=== PATIENT | female | born 1930 | race Caucasian/White ===

== ENCOUNTER 2017-04-03 05:08 | Observation (INO) | payer MEDICARE, OTHER ==
[2017-04-03] VITALS (9 sets, daily range): BP systolic 104–208; BP diastolic 44–77; PULSE 76–109; RESP 16–20; TEMP 96–102.7; O2SAT 92–98
[~2017-04-03] VITALS: Ht 157.5 cm; Wt 52.0 kg
[~2017-04-03 05:08] MED LIST: ARIC10TA PO; CALC600T37 PO; CARV12.52 PO; CHOL50006 PO; COQ-200C PO; LOVA20TA PO; PRIL20CA PO; SPIRCAP INH; ST J81CH PO; VIBRYD PO
--- NOTE | 2017-04-03 05:19 | PD ---
HPI Chief Complaint: Cold / Flu Symptoms Time Seen by Provider: 05:15 Travel History International Travel<30 days: No Contact w/Intl Traveler<30days: No Traveled to known affect area: No History of Present Illness HPI 86-year-old female came to the emergency room with history of fever, vomiting, diarrhea, body aches for past 4-5 days. Patient says that she has not eaten or drank much in past 24-48 hours. Today she was feeling very sick and asked her son to call 911. She was brought in by EMS. Patient's rectal temperature was 100.8 upon arrival. She says that she did not receive the flu shot this year. She is awake and answering questions appropriately. She has some cough she says. There has been sick members in the family including her-2 sons with similar symptoms in the recent past. Patient denies of any pain anywhere. PFSH Past Medical History Narrative Medical List of her past medical, surgical, social and family history is reviewed from the nursing note. Hx Anticoagulant Therapy: Yes (aspirin ) Arthritis: Yes Asthma: No Autoimmune Disease: No Anxiety: Yes Depression: Yes Heart Rhythm Problems: No Cancer: No High Cholesterol: Yes Chest Pain: Yes Congestive Heart Failure: No COPD: No Cerebrovascular Accident: No Diabetes: No Dialysis: No Diminished Hearing: No Endocrine: No Gastrointestinal Disorders: Yes (REFLUX) GERD: No Glaucoma: No Genitourinary: No Hepatitis: No Hiatal Hernia: No Hypertension: No Immune Disorder: No Implanted Vascular Access Dvce: No Kidney Stones: No Musculoskeletal: Yes (ARTHRITIS) Neurologic: Yes (NERUOPATHY FEET) Psychiatric: No Reproductive: No Respiratory: Yes (copd 2l nc at night) Immunizations Current: Yes Myocardial Infarction: Yes Renal Failure: No Seizures: No Sickle Cell Disease: No Sleep Apnea: No Thyroid Disease: No Ulcer: No Menopausal: Yes Tubal Ligation: Yes Past Surgical History Abdominal Surgery: Yes (ENDOVASC AAA REP., APPY) AICD: No Appendectomy: Yes Body Medical Devices: PLATE LEFT WRIST Cardiac Surgery: Yes (LT CAROTID ENDARECTOMY) Ear Surgery: No Endocrine Surgery: No Eye Surgery: No Genitourinary Surgery: No Gynecologic Surgery: Yes (HYSTERECTOMY, TUBAL LIGATION) Hysterectomy: Yes Insulin Pump: No Joint Replacement: No Neurologic Surgery: No Oral Surgery: Yes (TONSILS) Pacemaker: No Thoracic Surgery: No Tonsillectomy: Yes Other Surgery: Yes Social History Alcohol Use: No Tobacco Use: No (8 YRS AGO, previous 1 ppd) Substance Use: No Allergies-Medications (Allergen,Severity, Reaction): Coded Allergies: Opioids - Morphine Analogues (Unverified Allergy, Severe, HALLUCINATIONS, 04/03/17) Opioids-Meperidine and Related (Unverified Allergy, Severe, HALLUCINATIONS , 04/03/17) Opioids-Methadone and Related (Unverified Allergy, Severe, HALLUCINATIONS , 04/03/17) Sulfa (Sulfonamide Antibiotics) (Unverified Allergy, Severe, Hallucinations, 04/03/17) adhesive (Unverified Allergy, Severe, Rash, 04/03/17) latex (Unverified Allergy, Severe, Rash, 04/03/17) DENIES ALLERGY ONLY TO ADHESIVES PAPER TAPE [place] codeine (Unverified Allergy, Unknown, 04/03/17) Comments List of her allergies reviewed from the nursing note. Reported Meds & Prescriptions Reported Meds & Active Scripts Active Reported B12 (Cyanocobalamin) 1,000 Mcg Tab 500 Mcg PO ONCE Fluoxetine (Fluoxetine HCl) 10 Mg Tab 10 Mg PO DAILY Spiriva Handihaler (Tiotropium Inh) 18 Mcg Cap 18 Mcg INH DAILY 1 capsule = 18 mcg Calcium Carbonate 500 Mg Calcium (1250 Mg) Tab 600 Mg PO BID 1,250 mg calcium carbonate (500 mg elemental calcium) Co Q-10 (Coenzyme Q10 (Ubidecarenone)) 100 Mg Cap Vitamin D3 (Cholecalciferol) 5,000 Unit Cap 5,000 Units PO DAILY Aricept (Donepezil) 23 Mg Tab 10 Mg PO HS Do not split, crushed or chewed. Prilosec (Omeprazole Magnesium) 20 Mg Tab Amlodipine (Amlodipine Besylate) 2.5 Mg Tab 2.5 Mg PO DAILY Carvedilol 3.125 Mg Tab 3.125 Mg PO BID Aspirin Low Dose (Aspirin) 81 Mg Chew 81 Mg PO DAILY [Vibryd] 20 Mg PO DAILY Narrative Medication List of her home medications reviewed from the nursing note. Review of Systems Except as stated in HPI: all other systems reviewed are Neg General / Constitutional: Positive: Fever Respiratory: Positive: Cough Gastrointestinal: Positive: Vomiting, Diarrhea Physical Exam Narrative GENERAL: Awake, alert, elderly, moderate distress SKIN: Focused skin assessment warm/dry. HEAD: Atraumatic. Normocephalic. EYES: Pupils equal and round. No scleral icterus. No injection or drainage. ENT: No nasal bleeding or discharge. Dry mucous membrane and coated tongue NECK: Trachea midline. No JVD. CARDIOVASCULAR: Regular rate and rhythm. No murmur appreciated. RESPIRATORY: No accessory muscle use. Clear to auscultation. Breath sounds equal bilaterally. GASTROINTESTINAL: Abdomen soft, non-tender, nondistended. Hepatic and splenic margins not palpable. MUSCULOSKELETAL: No obvious deformities. No clubbing. No cyanosis. No edema. NEUROLOGICAL: Awake and alert. No obvious cranial nerve deficits. Motor grossly within normal limits. Normal speech. PSYCHIATRIC: Appropriate mood and affect; insight and judgment normal. Data Data Last Documented VS Vital Signs Date Time Temp Pulse Resp B/P (MAP) Pulse Ox O2 Delivery O2 Flow Rate FiO2 04/03/17 05:42 98 Nasal Cannula 2.00 04/03/17 05:37 102.7 04/03/17 05:20 112 22 04/03/17 05:14 208/77 (120) Orders Orders Sepsis Workup Initiated (04/03/17 ) Complete Blood Count With Diff (04/03/17 05:38) Comprehensive Metabolic Panel (04/03/17 05:38) Lactic Acid Sepsis Protocol (04/03/17 05:38) Urinalysis - C+S If Indicated (04/03/17 05:38) Influenzae A/B Antigen (04/03/17 05:38) Blood Culture (04/03/17 05:38) Chest, Single Ap (04/03/17 05:38) Blood Glucose (04/03/17 05:38) Ecg Monitoring (04/03/17 05:38) Iv Access Insert/Monitor (04/03/17 05:38) Oximetry (04/03/17 05:38) Oxygen Administration (04/03/17 05:38) Sodium Chlor 0.9% 1000 Ml Inj (Ns 1000 M (04/03/17 05:45) Acetaminophen (Tylenol) (04/03/17 05:45) Sodium Chlorid 0.9% 500 Ml Inj (Ns 500 M (04/03/17 07:30) Place In Observation (04/03/17 ) Vital Signs (Adult) Q4H (04/03/17 07:26) Activity Oob With Assistance (04/03/17 07:26) Intake + Output JONAH.QSHIFT (04/03/17 07:26) Diet Heart Healthy (04/03/17 Breakfast) Sodium Chlor 0.9% 1000 Ml Inj (Ns 1000 M (04/03/17 09:00) Sodium Chloride 0.9% Flush (Ns Flush) (04/03/17 07:30) Sodium Chloride 0.9% Flush (Ns Flush) (04/03/17 09:00) Acetaminophen (Tylenol) (04/03/17 07:30) Ondansetron Inj (Zofran Inj) (04/03/17 07:30) Scd Bilateral/Knee High JONAH.BID (04/03/17 07:26) Naloxone Inj (Narcan Inj) (04/03/17 07:30) Admit Order (Ed Use Only) (04/03/17 07:27) Amlodipine (Norvasc) (04/03/17 09:00) Aspirin Chew (Aspirin Chew) (04/03/17 09:00) Calcium Carbonate (Oscal) (04/03/17 09:00) Carvedilol (Coreg) (04/03/17 09:00) Cholecalciferol (Vitamin D3) (04/03/17 09:00) Fluoxetine (Prozac) (04/03/17 09:00) Tiotropium Inh (Spiriva Inh) (04/03/17 09:00) Labs Laboratory Tests Test 04/03/17 06:00 White Blood Count 5.8 TH/MM3 Red Blood Count 4.91 MIL/MM3 Hemoglobin 12.3 GM/DL Hematocrit 37.8 % Mean Corpuscular Volume 77.0 FL Mean Corpuscular Hemoglobin 25.0 PG Mean Corpuscular Hemoglobin Concent 32.5 % Red Cell Distribution Width 16.0 % Platelet Count 189 TH/MM3 Mean Platelet Volume 8.0 FL Neutrophils (%) (Auto) 80.1 % Lymphocytes (%) (Auto) 9.3 % Monocytes (%) (Auto) 9.8 % Eosinophils (%) (Auto) 0.4 % Basophils (%) (Auto) 0.4 % Neutrophils # (Auto) 4.7 TH/MM3 Lymphocytes # (Auto) 0.5 TH/MM3 Monocytes # (Auto) 0.6 TH/MM3 Eosinophils # (Auto) 0.0 TH/MM3 Basophils # (Auto) 0.0 TH/MM3 CBC Comment DIFF FINAL Differential Comment Urine Color YELLOW Urine Turbidity CLEAR Urine pH 6.5 Urine Specific [place] 1.013 Urine Protein 100 mg/dL Urine Glucose (UA) NEG mg/dL Urine Ketones NEG mg/dL Urine Occult Blood NEG Urine Nitrite NEG Urine Bilirubin NEG Urine Urobilinogen LESS THAN 2.0 MG/DL Urine Leukocyte Esterase NEG Urine RBC 2 /hpf Urine WBC 2 /hpf Urine Hyaline Casts 1 /lpf Urine Mucus FEW /lpf Microscopic Urinalysis Comment CATH-CULT NOT IND Blood Urea Nitrogen 17 MG/DL Creatinine 1.22 MG/DL Random Glucose 120 MG/DL Total Protein 7.5 GM/DL Albumin 3.5 GM/DL Calcium Level 8.6 MG/DL Alkaline Phosphatase 82 U/L Aspartate Amino Transf (AST/SGOT) 20 U/L Alanine Aminotransferase (ALT/SGPT) 16 U/L Total Bilirubin 0.3 MG/DL Sodium Level 135 MEQ/L Potassium Level 3.9 MEQ/L Chloride Level 100 MEQ/L Carbon Dioxide Level 26.5 MEQ/L Anion Gap 9 MEQ/L Estimat Glomerular Filtration Rate 42 ML/MIN Lactic Acid Level 1.2 mmol/L MDM Medical Decision Making Medical Screen Exam Complete: Yes Emergency Medical Condition: Yes Medical Record Reviewed: Yes Differential Diagnosis Sepsis, UTI, pneumonia, influenza, viral illness Narrative Course 7:18 AM blood test results of back and within acceptable limits. Influenza is negative. Patient does not have a UTI. She was given 1 L of IV fluid bolus. Given her age and her illness I would like to admit her. Waiting for the hospitalist to call back. Patient was given Tylenol for the fever. Procedures EKG Prior to Arrival: No Diagnosis Primary Impression: Fever Qualified Codes: R50.9 - Fever, unspecified Additional Impressions: Dehydration Generalized weakness Admitting Information Admitting Physician Requests: it Baldemar Adame MD Apr 03, 2017 05:19
[2017-04-03] MEDS ORDERED: CARV3.12 PO (05:23)
[2017-04-03] MEDS ORDERED: ASPI81CH6 PO (05:23)
[2017-04-03] MEDS ORDERED: AMLO2.5T PO (05:25)
[2017-04-03] MEDS ORDERED: PRIL20TA2 (05:25)
[2017-04-03] MEDS ORDERED: ARIC23TA PO (05:25)
[2017-04-03] MEDS ORDERED: COEN1CAP (05:27)
[2017-04-03] MEDS ORDERED: CHOL5000 PO (05:27)
[2017-04-03] MEDS ORDERED: CALC12502 PO (05:27)
[2017-04-03] MEDS ORDERED: SPIRCAP INH (05:27)
[2017-04-03] MEDS ORDERED: CYAN1TAB24 PO (05:32)
[2017-04-03] MEDS ORDERED: FLUO10TA PO (05:32)
[2017-04-03] MEDS ORDERED: ACETAMINOPHEN 325 MG TAB PO ONE (05:45)
[2017-04-03] MEDS ORDERED: SODIUM CHLOR 0.9% 1000 ML INJ 1,000 ML IV ONE (05:45)
--- NOTE | 2017-04-03 06:13 | RADRPT ---
EXAM DATE/TIME: 04/03/2017 05:50 [facility] COMPARISON: CHEST SINGLE AP, December 22, 2015, 12:49. INDICATIONS : Short of breath. MEDICAL HISTORY : Chronic obstructive pulmonary disease. Myocardial infarction. SURGICAL HISTORY : None. ENCOUNTER: Initial ACUITY: 1 day PAIN SCORE: 0/10 LOCATION: Bilateral chest FINDINGS: A single view of the chest demonstrates the lungs to be symmetrically aerated without evidence of mas s, infiltrate or effusion. The cardiomediastinal contours are unremarkable. Osseous structures are intact. CONCLUSION: The lungs are clear. Vargas Donaldson MD on April 03, 2017 at 6:11 Board Certified Radiologist. This report was verified electronically.
[2017-04-03 06:19] LABS: BILIRUBIN, URINE NEG (NEG); BLOOD, URINE NEG (NEG); GLUCOSE,URINE NEG (NEG); HYALINE CAST, URINE 1 /lpf (RARE); KETONE, URINE NEG (NEG); MUCUS URINE FEW /lpf (OCC); NITRITE,URINE NEG (NEG); PH, URINE 6.5 (5.0-8.5); URINE COLOR YELLOW (YELLW/STRAW); URINE LEUKOCYTE ESTERASE NEG (NEG)
[2017-04-03 06:28] LABS: AUTOMATED NEUTROPHIL # 4.7 TH/MM3 (1.8-7.7); BASOPHIL % 0.4 % (0.0-2.0); EOSINOPHIL % 0.4 % (0.0-4.0); HEMATOCRIT 37.8 % (35.0-46.0); HEMOGLOBIN 12.3 GM/DL (11.6-15.3); LYMPH % 9.3 % (9.0-44.0); LYMPHOCYTE # 0.5 TH/MM3 (1.0-4.8); MEAN CORPUSCULAR HGB CONC 32.5 % (32.0-36.0); MONO % 9.8 % (0.0-8.0); MONOCYTE # 0.6 TH/MM3 (0-0.9); NEUT % 80.1 % (16.0-70.0); PLATELET COUNT 189 TH/MM3 (150-450); RED BLOOD COUNT 4.91 MIL/MM3 (4.00-5.30); WHITE BLOOD COUNT 5.8 TH/MM3 (4.0-11.0)
[2017-04-03 06:30] LABS: ALBUMIN 3.5 GM/DL (3.4-5.0); ALT (GPT) 16 U/L (10-53); AST (GOT) 20 U/L (15-37); BICARBONATE 26.5 MEQ/L (21.0-32.0); BLOOD UREA NITROGEN 17 MG/DL (7-18); CALCIUM 8.6 MG/DL (8.5-10.1); CHLORIDE 100 MEQ/L (98-107); CREATININE 1.22 MG/DL (0.50-1.00); GLOMERULAR FILTRATION RATE 42 ML/MIN (>89); GLUCOSE,RANDOM 120 MG/DL (74-106); SODIUM (NA) 135 MEQ/L (136-145)
[2017-04-03 06:33] LABS: ALKALINE PHOSPHATASE 82 U/L (45-117); TOTAL BILIRUBIN ADULT 0.3 MG/DL (0.2-1.0); TOTAL PROTEIN 7.5 GM/DL (6.4-8.2)
[2017-04-03] MEDS ORDERED: SODIUM CHLORID 0.9% 500 ML INJ 500 ML IV ONE (07:30)
[2017-04-03] MEDS ORDERED: SODIUM CHLORIDE 0.9% FLUSH 10 ML FLUSH IV FLUSH PRN (07:30)
[2017-04-03] MEDS ORDERED: ACETAMINOPHEN 325 MG TAB PO PRN (07:30)
[2017-04-03] MEDS ORDERED: NALOXONE HCL 0.4 MG/ML AMP IV PUSH PRN (07:30)
[2017-04-03] MEDS ORDERED: ONDANSETRON HCL 4 MG/2 ML VIAL IVP PRN (07:30)
[2017-04-03] MEDS ORDERED: PILL SPLITTER OTHER PRN (09:00)
[2017-04-03] MEDS ORDERED: VILAZODONE 20 MG PO SCH (09:00)
[2017-04-03] MEDS: CARVEDILOL 3.125 MG TAB PO SCH ×2 (09:00→20:34)
[2017-04-03] MEDS: amLODIPine BESYLATE 5 MG TAB PO SCH (09:00)
[2017-04-03] MEDS: CALCIUM CARBONATE 1.25 GM (CA 500 MG) TAB PO SCH ×2 (10:26→20:34)
[2017-04-03] MEDS: CHOLECALCIFEROL (VIT D3) 5000 UNIT CAP PO SCH (10:26)
[2017-04-03] MEDS: PANTOPRAZOLE SODIUM 40 MG VIAL IV PUSH SCH (10:27)
[2017-04-03] MEDS: ASPIRIN 81 MG CHEW TAB PO SCH (10:27)
[2017-04-03] MEDS: SODIUM CHLORIDE 0.9% FLUSH 10 ML FLUSH IV FLUSH SCH ×2 (10:27→20:34)
[2017-04-03] MEDS: TIOTROPIUM BROMIDE 18 MCG INH INH SCH (11:16)
[2017-04-03] MEDS: FLUoxetine HCL 10 MG CAP PO SCH (11:17)
[2017-04-03] MEDS: SODIUM CHLOR 0.9% 1000 ML INJ 1,000 ML IV SCH (11:18)
--- NOTE | 2017-04-03 12:21 | HHI.HP ---
[facility] Admission Diagnosis fever, dehydration Diagnoses: Chief Complaint: fever, nausea/vomiting, diarrhea Travel History International Travel<30 Days: No Contact w/Intl Traveler <30 Da: No Traveled to Known Affected Are: No Sepsis Criteria SIRS Criteria (2 or more): Temp > 100.9 or < 96.8, Heart rate over 90 Sepsis Criteria (SIRS+source): Infect source susp/known Criteria Outcome: Meets sepsis criteria History of Present Illness Written by Stefania Christian, acting as scribe for Dr. Madden on 04/03/17 at 12: 19. 86-year-old female with history of arthritis, anxiety, depression, hypertension , hyperlipidemia, GERD, neuropathy, PAD, COPD on 2L NC at night, presents with a 5 day history of myalgias, nausea/vomiting, diarrhea, fevers, and nonproductive cough. Earlier this morning she also became acutely dizzy and extremely weak therefore she asked her son to call 911 and she was transported via [facility]. She reports decreased recent oral intake over the past 3-4 days. She reports very loose nonbloody stools. She denies any abdominal pain except feeling sore when she coughs. Her 2 sons recently had the flu. She did not receive her flu shot this year. She denies any recent travel or recent antibiotic use. Upon arrival to the ER, rectal temperature was 100.8. Influenza negative. She was given IVF and tylenol. Since her arrival to the hospital, she feels slightly better. Her nausea and vomiting has improved however she continues to have diarrhea and generalized weakness. She has no other medical complaints to report at this time including no chest pain, palpitations, shortness of breath, or urinary complaints. Review of Systems Except as stated in HPI: all other systems reviewed are Neg Past Family Social History Past Medical History arthritis anxiety depression hypertension hyperlipidemia GERD neuropathy PAD COPD on 2L NC at night Past Surgical History AAA repair Left carotid endarterectomy Appendectomy Tubal ligation Hysterectomy Tonsillectomy Left wrist fracture ORIF with plate Reported Medications B12 (Cyanocobalamin) 1,000 Mcg Tab 500 Mcg PO ONCE Fluoxetine (Fluoxetine HCl) 10 Mg Tab 10 Mg PO DAILY Spiriva Handihaler (Tiotropium Inh) 18 Mcg Cap 18 Mcg INH DAILY 1 capsule = 18 mcg Calcium Carbonate 500 Mg Calcium (1250 Mg) Tab 600 Mg PO BID 1,250 mg calcium carbonate (500 mg elemental calcium) Co Q-10 (Coenzyme Q10 (Ubidecarenone)) 100 Mg Cap Vitamin D3 (Cholecalciferol) 5,000 Unit Cap 5,000 Units PO DAILY Aricept (Donepezil) 23 Mg Tab 10 Mg PO HS Do not split, crushed or chewed. Prilosec (Omeprazole Magnesium) 20 Mg Tab Amlodipine (Amlodipine Besylate) 2.5 Mg Tab 2.5 Mg PO DAILY Carvedilol 3.125 Mg Tab 3.125 Mg PO BID Aspirin Low Dose (Aspirin) 81 Mg Chew 81 Mg PO DAILY [Vibryd] 20 Mg PO DAILY Allergies: Coded Allergies: Opioids - Morphine Analogues (Unverified Allergy, Severe, HALLUCINATIONS, 04/03/17) Opioids-Meperidine and Related (Unverified Allergy, Severe, HALLUCINATIONS , 04/03/17) Opioids-Methadone and Related (Unverified Allergy, Severe, HALLUCINATIONS , 04/03/17) Sulfa (Sulfonamide Antibiotics) (Unverified Allergy, Severe, Hallucinations, 04/03/17) adhesive (Unverified Allergy, Severe, Rash, 04/03/17) latex (Unverified Allergy, Severe, Rash, 04/03/17) DENIES ALLERGY ONLY TO ADHESIVES PAPER TAPE [place] codeine (Unverified Allergy, Unknown, 04/03/17) Active Ordered Medications Current Medications Medications (Trade) Dose Ordered Sig/Allegra Route Start Time Stop Time Status Last Admin Sodium Chloride 1,000 ml @ 60 mls/hr [id number] IV 04/03/17 09:00 04/03/17 11:18 (NS Flush) 2 ml UNSCH PRN IV FLUSH 04/03/17 07:30 (NS Flush) 2 ml BID IV FLUSH 04/03/17 09:00 04/03/17 10:27 (Tylenol) 650 mg Q4H PRN PO 04/03/17 07:30 (Zofran Inj) 4 mg Q6H PRN IVP 04/03/17 07:30 (Narcan Inj) 0.4 mg UNSCH PRN IV PUSH 04/03/17 07:30 (Norvasc) 2.5 mg DAILY PO 04/03/17 09:00 (Aspirin Chew) 81 mg DAILY PO 04/03/17 09:00 04/03/17 10:27 (Oscal) 500 mg BID PO 04/03/17 09:00 04/03/17 10:26 (Coreg) 3.125 mg BID PO 04/03/17 09:00 (Vitamin D3) 5,000 units DAILY PO 04/03/17 09:00 04/03/17 10:26 (Aricept) 10 mg HS PO 04/03/17 21:00 (PROzac) 10 mg DAILY PO 04/03/17 09:00 04/03/17 11:17 (Spiriva Inh) 18 mcg DAILY INH 04/03/17 09:00 04/03/17 11:16 (Protonix Inj) 40 mg Q24H IV PUSH 04/03/17 09:00 04/03/17 10:27 (Pill Splitter) 1 ea UNSCH PRN OTHER 04/03/17 09:00 (Pneumovax-23 Inj) 25 mcg ONCE ONCE IM 04/04/17 10:00 04/04/17 10:01 Family History Family history positive for heart disease Social History Prior tobacco use, 1PPD, quit 8years ago Denies any alcohol use Denies any illicit drug use Physical Exam Vital Signs Vital Signs Date Time Temp Pulse Resp B/P (MAP) Pulse Ox O2 Delivery O2 Flow Rate FiO2 04/03/17 09:58 96.0 85 18 104/51 (68) 98 04/03/17 09:01 86 16 140/64 (89) 98 2.00 04/03/17 08:26 107 18 140/64 (89) 97 Nasal Cannula 2.00 04/03/17 07:49 100 16 140/64 (89) 98 Nasal Cannula 2.00 04/03/17 05:42 98 Nasal Cannula 2.00 04/03/17 05:42 98 Nasal Cannula 2.00 04/03/17 05:37 102.7 04/03/17 05:20 112 22 92 Nasal Cannula 2.00 04/03/17 05:14 99.7 109 20 208/77 (120) 95 Physical Exam GENERAL: Well-nourished, well-developed pleasant elderly female patient in NAD. SKIN: Warm and dry. No rash. HEAD: Normocephalic. Atraumatic. EYES: Pupils equal and round. No scleral icterus. No injection or drainage. ENT: No nasal bleeding or discharge. Mucous membranes dry. NECK: Supple. Trachea midline. CARDIOVASCULAR: Regular rate and rhythm. S1, S2 noted. No murmur appreciated. RESPIRATORY: No accessory muscle use. Clear to auscultation. Breath sounds equal bilaterally. GASTROINTESTINAL: Abdomen soft, non-tender, nondistended. Normoactive bowel sounds x4. MUSCULOSKELETAL: No obvious deformities. Extremities without clubbing, cyanosis , or edema. NEUROLOGICAL: Awake and alert. No obvious cranial nerve deficits. Generalized weakness but moving all extremities equally and spontaneously. Normal speech. PSYCHIATRIC: Appropriate mood and affect; insight and judgment normal. Laboratory Laboratory Tests Test 04/03/17 06:00 White Blood Count 5.8 Red Blood Count 4.91 Hemoglobin 12.3 Hematocrit 37.8 Mean Corpuscular Volume 77.0 Mean Corpuscular Hemoglobin 25.0 Mean Corpuscular Hemoglobin Concent 32.5 Red Cell Distribution Width 16.0 Platelet Count 189 Mean Platelet Volume 8.0 Neutrophils (%) (Auto) 80.1 Lymphocytes (%) (Auto) 9.3 Monocytes (%) (Auto) 9.8 Eosinophils (%) (Auto) 0.4 Basophils (%) (Auto) 0.4 Neutrophils # (Auto) 4.7 Lymphocytes # (Auto) 0.5 Monocytes # (Auto) 0.6 Eosinophils # (Auto) 0.0 Basophils # (Auto) 0.0 CBC Comment DIFF FINAL Differential Comment Urine Color YELLOW Urine Turbidity CLEAR Urine pH 6.5 Urine Specific [place] 1.013 Urine Protein 100 Urine Glucose (UA) NEG Urine Ketones NEG Urine Occult Blood NEG Urine Nitrite NEG Urine Bilirubin NEG Urine Urobilinogen LESS THAN 2.0 Urine Leukocyte Esterase NEG Urine RBC 2 Urine WBC 2 Urine Hyaline Casts 1 Urine Mucus FEW Microscopic Urinalysis Comment CATH-CULT NOT IND Blood Urea Nitrogen 17 Creatinine 1.22 Random Glucose 120 Total Protein 7.5 Albumin 3.5 Calcium Level 8.6 Alkaline Phosphatase 82 Aspartate Amino Transf (AST/SGOT) 20 Alanine Aminotransferase (ALT/SGPT) 16 Total Bilirubin 0.3 Sodium Level 135 Potassium Level 3.9 Chloride Level 100 Carbon Dioxide Level 26.5 Anion Gap 9 Estimat Glomerular Filtration Rate 42 Lactic Acid Level 1.2 Date/Time Source Procedure Growth Status 04/03/17 06:05 Blood Peripheral Aerobic Blood Culture Pending Received 04/03/17 06:05 Blood Peripheral Anaerobic Blood Culture Pending Received 04/03/17 06:00 Nasal Aspirate Influenza Types A,B Antigen (PRITESH) - Final NEGATIVE FOR FLU A AND B ANTIGEN.... Complete Result Diagram: 04/03/17 0600 04/03/17 0600 Imaging Last Impressions Chest X-Ray 04/03/17 0538 Signed Impressions: Service Date/Time: Monday, April 03, 2017 05:50 - CONCLUSION: The lungs are clear. Vargas Donaldson MD Caprenato VTE Risk Assessment Caprini VTE Risk Assessment: Mod/High Risk (score >= 2) Caprini Risk Assessment Model Point Value = 1 Point Value = 2 Point Value = 3 Point Value = 5 Age 41-60 Minor surgery BMI > 25 kg/m2 Swollen legs Varicose veins or History of unexplained or recurrent spontaneous Oral contraceptives or hormone replacement Sepsis (< 1 month) Serious lung disease, including pneumonia (< 1 month) Abnormal pulmonary function Acute myocardial infarction Congestive heart failure (< 1 month) History of inflammatory bowel disease Medical patient at bed rest Age 61-74 Arthroscopic surgery Major open surgery (> 45 min) Laparoscopic surgery (> 45 min) Malignancy Confined to bed (> 72 hours) Immobilizing plaster cast Central venous access Age >= 75 History of VTE Family history of VTE Factor V Leiden Prothrombin [id number] Lupus anticoagulant Anticardiolipin antibodies Elevated serum homocysteine Heparin-induced thrombocytopenia Other congenital or acquired thrombophilia Stroke (< 1 month) Elective arthroplasty Hip, pelvis, or leg fracture Acute spinal cord injury (< 1 month) Prophylaxis Regimen Total Risk Factor Score Risk Level Prophylaxis Regimen 0-1 Low Early ambulation 2 Moderate Order ONE of the following: *Sequential Compression Device (SCD) *Heparin 5000 units SQ BID 3-4 Higher Order ONE of the following medications: *Heparin 5000 units SQ TID *Enoxaparin/Lovenox 40 mg SQ daily (WT < 150 kg, CrCl > 30 mL/min) *Enoxaparin/Lovenox 30 mg SQ daily (WT < 150 kg, CrCl > 10-29 mL/min) *Enoxaparin/Lovenox 30 mg SQ BID (WT < 150 kg, CrCl > 30 mL/min) AND/OR *Sequential Compression Device (SCD) 5 or more Highest Order ONE of the following medications: *Heparin 5000 units SQ TID (Preferred with Epidurals) *Enoxaparin/Lovenox 40 mg SQ daily (WT < 150 kg, CrCl > 30 mL/min) *Enoxaparin/Lovenox 30 mg SQ daily (WT < 150 kg, CrCl > 10-29 mL/min) *Enoxaparin/Lovenox 30 mg SQ BID (WT < 150 kg, CrCl > 30 mL/min) AND *Sequential Compression Device (SCD) Assessment and Plan Problem List: (1) Sepsis ICD Code: A41.9 - Sepsis, unspecified organism (2) Gastroenteritis ICD Code: K52.9 - Noninfective gastroenteritis and colitis, unspecified (3) Fever ICD Code: R50.9 - Fever, unspecified Status: Acute (4) Dehydration ICD Code: E86.0 - Dehydration Status: Acute (5) Generalized weakness ICD Code: R53.1 - Weakness Status: Acute Assessment and Plan 86-year-old female with history of arthritis, anxiety, depression, hypertension , hyperlipidemia, GERD, neuropathy, PAD, COPD on 2L NC at night, presents with a 5 day history of myalgias, nausea/vomiting, diarrhea, fevers, and nonproductive cough. Earlier this morning she also became acutely dizzy and extremely weak therefore she asked her son to call 911 and she was transported via [facility]. Sepsis with Gastroenteritis: suspect symptoms of N/V/D related to viral illness. Tmax 102.7, HR 112. No leukocytosis. UA negative. Influenza negative. CXR images reviewed, no acute findings. -Blood cultures collected and pending -Check for Cdiff and stool studies -Supportive treatment with IVF, antiemetics prn -Monitor for improvement Dehydration: patient with dry mucous membranes on exam, suspect secondary to GI losses from diarrhea/vomiting. Cr 1.22, GFR 42. -give IVF hydration -encourage oral intake -monitor renal function Generalized Weakness: suspect secondary to viral illness as above. -Consult PT -supportive treatment COPD: chronic, on 2L NC at bedtime. Does not appear to be in exacerbation -continue O2 as needed -continue Spiriva, duonebs prn Hypertension/Hyperlipidemia: chronic, stable -continue patient's home meds including coreg and amlodipine -monitor BP, adjust antihypertensives as needed All other medical conditions listed above stable. Continue home medications as appropriate. DVT Prophylaxis: teds/SCDs This note was transcribed by sarah Christian. I, Dr. Maurilio Madden personally performed the history, physical exam, and medical decision making; and confirmed the accuracy of the information in the transcribed note. Authenticated by Dr. Maurilio Madden on 04/03/17 at 12:31. Discussed Condition With Patient, RN Problem Qualifiers (1) Fever: Qualified Codes: R50.9 - Fever, unspecified Stefania Christian PA-C Apr 03, 2017 12:21 Maurilio Madden MD Apr 03, 2017 13:12
[2017-04-03] MEDS ORDERED: RESP: ALBUTEROL 2.5 MG/IPRATROPIUM 0.5 MG NEB (PRN) NEB (16:00)
[2017-04-03] MEDS: HEPARIN SODIUM - SQ 10,000 UNITS/ML VIAL SQ SCH (20:35)
[2017-04-03] MEDS ORDERED: DONEPEZIL HCL 5 MG TAB PO SCH (21:00)
[2017-04-04] MEDS: SODIUM CHLOR 0.9% 1000 ML INJ 1,000 ML IV SCH (03:50)
[2017-04-04 05:06] VITALS: BP_SYST 173; BP_SYST 181; BP_DIAS 70; BP_DIAS 78; PULSE 74; RESP 18; TEMP 98.3; O2SAT 92
[2017-04-04 06:59] LABS: AUTOMATED NEUTROPHIL # 1.5 TH/MM3 (1.8-7.7); BASOPHIL % 0.7 % (0.0-2.0); EOSINOPHIL # 0.1 TH/MM3 (0-0.4); EOSINOPHIL % 2.9 % (0.0-4.0); HEMATOCRIT 33.4 % (35.0-46.0); HEMOGLOBIN 10.8 GM/DL (11.6-15.3); LYMPH % 31.4 % (9.0-44.0); LYMPHOCYTE # 0.9 TH/MM3 (1.0-4.8); MEAN CELL VOLUME 77.7 FL (80.0-100.0); MEAN CORPUSCULAR HGB CONC 32.2 % (32.0-36.0); MEAN PLATELET VOLUME 8.3 FL (7.0-11.0); MONO % 11.8 % (0.0-8.0); MONOCYTE # 0.3 TH/MM3 (0-0.9); NEUT % 53.2 % (16.0-70.0); PLATELET COUNT 163 TH/MM3 (150-450); RED CELL DISTRIBUTION WIDTH 15.7 % (11.6-17.2); WHITE BLOOD COUNT 2.9 TH/MM3 (4.0-11.0)
[2017-04-04 07:22] LABS: BICARBONATE 25.6 MEQ/L (21.0-32.0); CALCIUM 8.3 MG/DL (8.5-10.1); CREATININE 0.92 MG/DL (0.50-1.00)
[2017-04-04 08:00] VITALS: BP 186/82; PULSE 83; RESP 18; TEMP 99.3; O2SAT 94
--- NOTE | 2017-04-04 08:17 | HHI.FF ---
Face to Face Verification Diagnosis: (1) Gastroenteritis (2) Sepsis Physical Therapy Order: Evaluate and Treat, Improve ambulation, Strength and gait training Home Health Nursing Order: Medical education Signs/symptoms of disease process Medication education-adverse effect Nursing assessment with vital signs I have seen patient Lalita Oneil on 04/04/17. My clinical findings support the need for the requested home health care services because: Deconditioned w/ increased weakness I certify that my clinical findings support that this patient is homebound because: Unsteady gait/balance Unsafe to leave home unassisted Maurilio Madden MD Apr 04, 2017 08:17
[2017-04-04] MEDS: HEPARIN SODIUM - SQ 10,000 UNITS/ML VIAL SQ SCH (08:50)
[2017-04-04] MEDS: SODIUM CHLORIDE 0.9% FLUSH 10 ML FLUSH IV FLUSH SCH (08:50)
[2017-04-04] MEDS: PANTOPRAZOLE SODIUM 40 MG VIAL IV PUSH SCH (08:50)
[2017-04-04] MEDS: CALCIUM CARBONATE 1.25 GM (CA 500 MG) TAB PO SCH (08:51)
[2017-04-04] MEDS: TIOTROPIUM BROMIDE 18 MCG INH INH SCH (08:51)
[2017-04-04] MEDS: CHOLECALCIFEROL (VIT D3) 5000 UNIT CAP PO SCH (08:52)
[2017-04-04] MEDS: CARVEDILOL 3.125 MG TAB PO SCH (08:52)
[2017-04-04] MEDS: ASPIRIN 81 MG CHEW TAB PO SCH (08:52)
[2017-04-04] MEDS: amLODIPine BESYLATE 5 MG TAB PO SCH (08:52)
[2017-04-04] MEDS: FLUoxetine HCL 10 MG CAP PO SCH (08:53)
[2017-04-04] MEDS ORDERED: PNEUMOCOCCAL POLYVALENT INJ 25 MCG/0.5 ML SYR IM ONE (10:00)
[2017-04-04 11:40] VITALS: BP 145/65; PULSE 75; RESP 18; TEMP 98.3; O2SAT 92
[2017-04-04 12:04] LABS: HEMATOCRIT 32.2 % (35.0-46.0); HEMOGLOBIN 10.5 GM/DL (11.6-15.3); MEAN CELL VOLUME 76.4 FL (80.0-100.0); MEAN CORPUSCULAR HEMOGLOBIN 24.9 PG (27.0-34.0); MEAN CORPUSCULAR HGB CONC 32.5 % (32.0-36.0); PLATELET COUNT 175 TH/MM3 (150-450); RED BLOOD COUNT 4.22 MIL/MM3 (4.00-5.30); RED CELL DISTRIBUTION WIDTH 15.9 % (11.6-17.2); WHITE BLOOD COUNT 3.7 TH/MM3 (4.0-11.0)
--- NOTE | 2017-04-04 13:56 | HHI.PR ---
Subjective Remarks Follow-up gas enteritis and hypertension. Patient has no complain resolved nausea, vomiting and diarrhea. BP elevated again asymptomatic no headache or dizziness. Likely uncontrolled BB secondary to patient not able to tolerate by mouth meds prior to admission. Discussed with nursing staff Objective Vitals Vital Signs Date Time Temp Pulse Resp B/P (MAP) Pulse Ox O2 Delivery O2 Flow Rate FiO2 04/04/17 11:40 98.3 75 18 145/65 (91) 92 04/04/17 08:00 99.3 83 18 186/82 (116) 94 04/04/17 05:06 98.3 74 18 173/70 (104) 92 04/03/17 22:29 98.7 77 18 171/44 (86) 98 04/03/17 16:11 97.7 76 20 149/63 (91) 92 I/O 04/03/17 04/03/17 04/03/17 04/04/17 04/04/17 04/04/17 07:00 15:00 23:00 07:00 15:00 23:00 Intake Total 2000 ml Balance 2000 ml Intake IV Total 2000 ml Result Diagram: 04/04/17 1130 04/04/17 0330 Imaging Last Impressions Chest X-Ray 04/03/17 0538 Signed Impressions: Service Date/Time: Monday, April 03, 2017 05:50 - CONCLUSION: The lungs are clear. Vargas Donaldson MD Objective Remarks GENERAL: Well-nourished, well-developed pleasant elderly female patient in [facility]. SKIN: Warm and dry. No rash. CARDIOVASCULAR: Regular rate and rhythm. S1, S2 noted. No murmur appreciated. RESPIRATORY: No accessory muscle use. Clear to auscultation. Breath sounds equal bilaterally. GASTROINTESTINAL: Abdomen soft, non-tender, nondistended. Normoactive bowel sounds x4. MUSCULOSKELETAL: No obvious deformities. Extremities without clubbing, cyanosis , or edema. NEUROLOGICAL: Awake and alert. No obvious cranial nerve deficits. Nonfocal. Normal speech. PSYCHIATRIC: Appropriate mood and affect; insight and judgment normal. Procedures none A/P Problem List: (1) Sepsis ICD Code: A41.9 - Sepsis, unspecified organism (2) Gastroenteritis ICD Code: K52.9 - Noninfective gastroenteritis and colitis, unspecified (3) Fever ICD Code: R50.9 - Fever, unspecified Status: Acute (4) Dehydration ICD Code: E86.0 - Dehydration Status: Acute (5) Generalized weakness ICD Code: R53.1 - Weakness Status: Acute Assessment and Plan 86-year-old female with history of arthritis, anxiety, depression, hypertension , hyperlipidemia, GERD, neuropathy, PAD, COPD on 2L NC at night, presents with a 5 day history of myalgias, nausea/vomiting, diarrhea, fevers, and nonproductive cough. Earlier this morning she also became acutely dizzy and extremely weak therefore she asked her son to call 911 and she was transported via [facility]. Sepsis with Gastroenteritis: Resolved symptoms. She is clinically stable for discharge. Dehydration secondary to above. Improved with IV hydration. Patient tolerating by mouth Generalized Weakness: suspect secondary to viral illness as above. Continue physical therapy COPD: chronic, on 2L NC at bedtime. Does not appear to be in exacerbation -continue O2 as needed -continue Spiriva, duonebs prn Hypertension/Hyperlipidemia: Uncontrolled BP since patient was not able to tolerate by mouth medications prior to admission. This is now improved continue home medications of Coreg and amlodipine -monitor BP, adjust antihypertensives as needed All other medical conditions listed above stable. Continue home medications as appropriate. DVT Prophylaxis: teds/SCDs Discharge Planning Discharge patient to home with visiting nurse and physical therapy Condition on discharge: Improved Regular Diet as tolerated Ad Molly activity no driving Rx written: None Follow-up with primary care physician Problem Qualifiers (1) Fever: Qualified Codes: R50.9 - Fever, unspecified Maurilio Madden MD Apr 04, 2017 13:56
== END 2017-04-04 13:55 | disposition home or self-care (01) ==
LOC: NEPE 05:08 → INTOOBSV 07:30 → NEDA 07:30 → NEPFCDU 09:05
PROVIDERS: ADMIT Internal Medicine; ATTEND Internal Medicine
DX: A41.9 Sepsis, unspecified organism (principal); K52.9 Noninfective gastroenteritis and colitis, unspecified; E86.0 Dehydration; I10 Essential (primary) hypertension; E78.00 Pure hypercholesterolemia, unspecified; I25.2 Old myocardial infarction; K21.9 Gastro-esophageal reflux disease without esophagitis; G62.9 Polyneuropathy, unspecified; I73.9 Peripheral vascular disease, unspecified; J44.9 Chronic obstructive pulmonary disease, unspecified; F41.9 Anxiety disorder, unspecified; F32.9 Major depressive disorder, single episode, unspecified; M19.90 Unspecified osteoarthritis, unspecified site; Z79.82 Long term (current) use of aspirin; Z87.891 Personal history of nicotine dependence; Z79.899 Other long term (current) drug therapy; Z88.2 Allergy status to sulfonamides; Z23 Encounter for immunization
CPT/HCPCS: 71045; 80048; 80053; 81001; 83605; 83735; 85025; 85027; 87040; 87804; 90732; 96361; 96372; 96374; 96376; 97162; 99285; C9113; G0378; G8987; G8988; J1644; J7030; J7040; 96360